=== PATIENT | male | born 1970 | race Hispanic/Latino ===

== ENCOUNTER 2017-11-11 12:27 | Emergency (ER) | payer BC ==
[2017-11-11 13:02] VITALS: BP 117/68; PULSE 90; RESP 16; TEMP 99.6; O2SAT 96
--- NOTE | 2017-11-11 13:59 | ED PDOC ---
HPI: General Adult Time Seen by Provider: 11/11/17 13:07 Chief Complaint (Nursing): Fever Chief Complaint (Provider): Fever, Cough, Congestion, Sore Throat History Per: Patient History/Exam Limitations: no limitations Onset/Duration Of Symptoms: Days (x4 days) Current Symptoms Are (Timing): Still Present Additional Complaint(s): 47 y/o male presents to the ED complaining of fever, cough, congestion, and sore throat, onset of 4 days. Patient also reports of body aches, and took Advil for fever with mild relief. Of note, fever resolved this morning. Patient has been experiencing some productive cough associated with chest pain, headache , and fatigue, but denies any difficulty breathing, vomiting and diarrhea. Past Medical History Reviewed: Historical Data Vital Signs: Last Vital Signs Temp 99.6 F 11/11/17 12:58 Pulse 90 11/11/17 12:58 Resp 16 11/11/17 12:58 BP 117/68 11/11/17 12:58 Pulse Ox 96 11/11/17 14:30 - Medical History PMH: No Chronic Diseases - Surgical History Surgical History: No Surg Hx - Family History Family History: States: Unknown Family Hx - Social History Current smoker - smoking cessation education provided: No Ex-Smoker (has not smoked in the last 12 months): No Alcohol: None Drugs: Denies - Allergies Allergies/Adverse Reactions: Allergies Allergy/AdvReac Type Severity Reaction Status Date / Time No Known Allergies Allergy Verified 11/11/17 12:58 Review of Systems ROS Statement: Except As Marked, All Systems Reviewed And Found Negative Constitutional: Positive for: Fever, Other (body aches, fatigue) ENT: Positive for: Nose Congestion, Throat Pain (sore throat) Cardiovascular: Positive for: Chest Pain (when coughing) Respiratory: Positive for: Cough. Negative for: Shortness of Breath Gastrointestinal: Negative for: Vomiting, Diarrhea Neurological: Positive for: Headache Physical Exam - Reviewed Nursing Documentation Reviewed: Yes Vital Signs Reviewed: Yes - Physical Exam Appears: Positive for: Non-toxic, No Acute Distress Head Exam: Positive for: ATRAUMATIC, NORMOCEPHALIC Skin: Positive for: Normal Color, Warm Eye Exam: Positive for: Normal appearance, EOMI, PERRL ENT: Positive for: Normal ENT Inspection Neck: Positive for: Normal, Painless ROM, Supple Cardiovascular/Chest: Positive for: Regular Rate, Rhythm. Negative for: Murmur Respiratory: Positive for: Normal Breath Sounds. Negative for: Respiratory Distress Gastrointestinal/Abdominal: Positive for: Normal Exam, Soft. Negative for: Tenderness Back: Positive for: Normal Inspection Extremity: Positive for: Normal ROM. Negative for: Pedal Edema, Deformity Neurologic/Psych: Positive for: Alert, Oriented. Negative for: Motor/Sensory Deficits - ECG O2 Sat by Pulse Oximetry: 96 (RA) Pulse Ox Interpretation: Normal - Radiology X-Ray: Interpreted by Me, Viewed By Me, Read By Radiologist X-Ray Interpretation: No Acute Disease Medical Decision Making Medical Decision Making: Time: --14:00 Impression: --Upper Respiratory Illness Differential: --Influenza, Pneumonia, Strep Throat Plan: --Influenza A B --Rapid Strep Group Reassess -- Scribe Attestation: Documented by Pk Fuentes acting as a scribe for Enrique Farrell MD. Disposition - Clinical Impression Clinical Impression: Influenza - Patient ED Disposition Is Patient to be Admitted: No Doctor Will See Patient In The: Office Counseled Patient/Family Regarding: Studies Performed, Diagnosis, Need For Followup - Disposition Referrals: [facility] [Outside] Disposition: Routine/Home Disposition Time: 16:12 Condition: GOOD Additional Instructions: Take motrin and tylenol for pain and fever. Return for worsening. Follow up with your PCP in 2-3 days. Instructions: Influenza (ED)
--- NOTE | 2017-11-11 14:23 | RAD ---
HISTORY: fever cough COMPARISON: No prior. TECHNIQUE: Chest PA and lateral FINDINGS: LUNGS: No active pulmonary disease. PLEURA: Minor apical pleural thickening is appreciated. No pleural effusion is seen. No pneumothorax is noted. Trachea is midline. CARDIOVASCULAR: Normal. OSSEOUS STRUCTURES: No significant abnormalities. VISUALIZED UPPER ABDOMEN: Normal. OTHER FINDINGS: None. IMPRESSION: No focal infiltrate or CHF.
== END 2017-11-11 16:46 | disposition home or self-care (01) ==
LOC: H.ER 12:27
DX: J11.1 Influenza due to unidentified influenza virus with other respiratory manifestations (principal)